=== PATIENT | male | born 1945 | race Caucasian/White ===

== ENCOUNTER → 2019-09-27 | Outpatient (CLI) | payer MEDICARE ==
[2019-09-27 15:40] LABS: African American GFR (CKD) >90 (>60 ml/min/1.73 sqM); Blood Urea Nitrogen 21 mg/dL (9-20)
--- NOTE | 2019-09-27 16:22 | CT ---
EXAMINATION TYPE: CT brain wo/w con DATE OF EXAM: 09/27/2019 COMPARISON: 09/27/2019 HISTORY: Ataxia, Hx of parkinsons CT DLP: 2172.7mGycm CONTRAST: CT scan of the head is performed without and with IV Contrast, patient injected with 100 mL of Isovue 300. Unenhanced followed by contrast enhanced CT of the brain is submitted for evaluation. [id number] te Age related atrophic and chronic small vessel ischemic change. No enhancing lesion or acute proces s.There is no evidence for intracranial hemorrhage or extra-axial collection. No mass effects are id entified. Visualized bony calvarium is intact. Contrast is administered and no enhancing lesions ar e detected. No pathologic enhancement is identified. If symptoms persist consider MRI. IMPRESSION: 1. Age related atrophic and chronic small vessel ischemic change. No enhancing lesion or acute proces s.
== END | disposition home or self-care (01) ==
LOC: RADCTMAIN 15:07
PROVIDERS: ATTEND Psychiatry & Neurology Neurology
DX: G31.1 Senile degeneration of brain, not elsewhere classified (principal); I67.82 Cerebral ischemia; R27.0 Ataxia, unspecified; D49.6 Neoplasm of unspecified behavior of brain; I63.9 Cerebral infarction, unspecified
CPT/HCPCS: 82565; 84520; 70470; 36415; Q9967